=== PATIENT | female | born 1995 | race Caucasian/White ===

== ENCOUNTER → 2017-01-15 | Outpatient (CLI) | payer OTHER ==
[~2017-01-15] MED LIST: HYDR-3240 PO; NORG1TAB6 PO; RIVA15TA PO; RIVA20TA PO
== END | disposition home or self-care (01) ==
LOC: CVU 07:59
PROVIDERS: ATTEND Surgery
DX: I82.412 Acute embolism and thrombosis of left femoral vein (principal); I74.3 Embolism and thrombosis of arteries of the lower extremities
CPT/HCPCS: 93971